=== PATIENT | male | born 1995 | race Caucasian/White ===

== ENCOUNTER 2016-10-30 17:16 | Emergency (ER) | payer OTHER ==
[2016-10-30 17:21] VITALS: BP 158/61; PULSE 68; RESP 18; TEMP 97.9; O2SAT 97
--- NOTE | 2016-10-30 17:34 | EDPHY ---
H & P Stated Complaint: Laceration to left hand. HPI/ROS: Chief complaint: Hand injuries History of present illness: This is a 21-year-old male who presents to the emergency department for evaluation and treatment after injuring both of his hands. He was folding up a ping pong table when his hand got caught between it. He sustained minor abrasions to his right hand. He reports that this hand otherwise feels well. His primary concern is a laceration to the his left hand. His laceration is over the top of it. He states he has only minimal discomfort. He is still moving the digits of that hand well. He denies paresthesias or abnormal coolness in the hand. He denies trauma to other parts of the body. Review of systems: A 10 point review of systems was obtained and other than described above was negative - Personal History Current Tetanus Diphtheria and Acellular Pertussis (TDAP): Yes - Medical/Surgical History Hx Asthma: Yes Hx Chronic Respiratory Disease: No Hx Diabetes: No Hx Cardiac Disease: No Hx Renal Disease: No Hx Cirrhosis: No Hx Alcoholism: No Hx HIV/AIDS: No Hx Splenectomy or Spleen Trauma: No Other PMH: asthma - Social History Smoking Status: Never smoked - Physical Exam Exam: General: Alert, nontoxic Skin: Abrasions to the dorsum of the right hand. There is a 1 cm laceration to the dorsum of the left hand with associated abrasions. Musculoskeletal: The hands and wrists are nontender. He is flexing and extending all joints in all digits in all hernandez without difficulty. He is moving both wrists in all hernandez without difficulty. Vascular: Radial pulses 2+. Capillary refill brisk in all digits of both hands. Neurologic: Sensation intact in all digits of both hands. Constitutional: Initial Vital Signs Temperature (C) 36.6 C 10/30/16 17:17 Heart Rate 68 10/30/16 17:17 Respiratory Rate 18 10/30/16 17:17 Blood Pressure 158/61 H 10/30/16 17:17 O2 Sat (%) 97 10/30/16 17:17 O2 Delivery Mode Room Air Allergies/Adverse Reactions: No Known Allergies Allergy (Unverified 10/30/16 17:21) Home Medications: Medication Instructions Recorded Albuterol 10/30/16 Medical Decision Making Procedures: Procedure: Laceration repair. Verbal consent was obtained from the patient. The 1 cm laceration on the dorsum of the left hand was anesthetized in the usual fashion. The wound was irrigated , draped and explored to its base with a gloved finger. There were no deep structures involved. No tendon injury was identified. The wound was repaired with 5 0 Prolene, 3 simple interrupted sutures. The wound repair was simple. The procedure was performed by myself. ED Course/Re-evaluation: Patient seen under the supervision of my secondary supervising physician Dr. Usha Pack. Patient presents to the emergency department for injuries to both of his hands. He reports minimal discomfort. His hands appear to be neurovascularly intact. He has good musculoskeletal control of the hands. Does have a laceration to his left hand. His immunizations are up-to-date. Exploration does not reveal foreign body or deep structure injury. I have offered x-rays for further evaluation but he has declined, he is competent to make this decision. The wound is cleaned, repaired and dressed. He is discharged home. Home care is discussed. He is asked to follow up with a hand doctor for recheck. Return precautions are given. Patient voiced understanding and agreement with plan. Departure - Departure Disposition: Home, Routine, Self-Care Clinical Impression: Hand laceration Qualifiers: Encounter type: initial encounter Laterality: left Qualifier Code: (S61.412A) Laceration without foreign body of left hand, initial encounter Condition: Good Instructions: Laceration (ED), Care For Your Stitches (ED), Acute Wound Care ( ED) Additional Instructions: Follow-up with a hand doctor this week or early next week for recheck Stitches to be removed in 7 days If symptoms worsen or new symptoms develop return to the emergency department for recheck You were offered x-ray studies of your hands today, you declined. Referrals: Clint Villar MD [Primary Care Provider] - As per Instructions Edmund Abarca MD [Medical Doctor] - As per Instructions
== END 2016-10-30 18:26 | disposition home or self-care (01) ==
PROC: 0HQGXZZ Repair Left Hand Skin, External Approach (ICD-10-PCS; principal; 2016-10-30)
DX: S61.412A Laceration without foreign body of left hand, initial encounter (principal); J45.909 Unspecified asthma, uncomplicated; W23.0XXA Caught, crushed, jammed, or pinched between moving objects, initial encounter

== ENCOUNTER → 2016-11-04 | Outpatient (CLI) | payer OTHER ==
--- NOTE | 2016-11-04 16:03 | DX ---
Left 3rd Finger 3 Views History: Trauma, pain. Comparison: Trauma several days ago, pain. Findings: No fractures identified. Alignment is normal. Bone mineralization is normal. There is no si gnificant degenerative change. There is no focal soft tissue swelling. Impression: No acute osseous findings.
== END ==
LOC: BMCIMAGING 14:05
PROVIDERS: ATTEND Physician Assistant
DX: M79.645 Pain in left finger(s) (principal)